=== PATIENT | male | born 1990 | race Caucasian/White ===

== ENCOUNTER 2017-12-22 13:39 | Emergency (ER) | payer OTHER ==
[~2017-12-22] VITALS: Ht 165.1 cm; Wt 65.0 kg
[2017-12-22 13:56] VITALS: BP 151/96; TEMP 37; Ht 165.1 cm; Wt 65.0 kg
--- NOTE | 2017-12-22 14:30 | DIAGNOSTIC IMAGING REPORT ---
R ELBOW MIN 3 VIEWS ROUTINE CLINICAL HISTORY: R elbow injury RIGHT ELBOW PAIN COMPARISON: None. DISCUSSION: No fractures or dislocations are visualized. The fat pads are not significantly displaced. IMPRESSION: No fractures or dislocations identified. Electronically signed by: Janak Ordaz M.D. 12/22/2017 2:29 PM Dictated Date/Time: 12/22/2017 2:28 PM
[2017-12-22] MEDS ORDERED: OXYC1TAB3 PO (14:39)
[2017-12-22 15:08] VITALS: PULSE 98; O2SAT 99
--- NOTE | 2017-12-22 16:27 | EMERGENCY ROOM VISIT NOTE ---
History First contact with patient: 14:01 Chief Complaint: ARM PAIN Stated Complaint: ARM IN CONCRETE History of Present Illness The patient is a 27 year old male who presents to the Emergency Room with complaints of right elbow pain and inability to move his elbow after sustaining a work-related injury. The patient reports that he reached in to a concrete truck spout and got his arm pinched. He reports an abrasion to the inner aspect of the elbow. He rates his discomfort a 7 out of 10. He denies any paresthesias or numbness of the right upper extremity. He denies any other injuries from this incident, including neck pain, back pain, chest pain, shortness of breath or other concerning symptoms. The patient is right-hand dominant. Review of Systems 10 system review was performed and was negative except for pertinent positives and negatives as indicated in history of present illness Past Medical/Surgical History Medical Problems: (1) No significant past medical history Surgical Problems: (1) No history of previous surgery Family History Unremarkable Social History Smoking Status: Current Every Day Smoker Alcohol Use: none Drug Use: none Marital Status: single Occupation Status: employed Current/Historical Medications Scheduled PRN Oxycodone Ir (Roxicodone Ir), 1-2 TAB PO Q4H PRN for Pain Physical Exam Vital Signs Date Time Temp Pulse Resp B/P (MAP) Pulse Ox O2 Delivery O2 Flow Rate FiO2 12/22/17 15:08 98 16 99 12/22/17 13:56 37.0 101 16 151/96 99 Room Air Physical Exam CONSTITUTIONAL: Healthy and well nourished. Alert and oriented X 3 with positive affect. Patient does not appear in any acute distress. HEENT: Normocephalic, atraumatic. Pupils equal, round and reactive. NECK: Full active range of motion without discomfort. RESPIRATORY: Clear to auscultation bilaterally with no wheezing, crackles, rhonchi or stridor. CARDIOVASCULAR: Regular rate and rhythm with no murmurs, rubs or gallops. GASTROINTESTINAL: Bowel sounds present in all quadrants. Soft and nontender to palpation. MUSCULOSKELETAL: Examination shows mild edema around the right elbow region. He has a linear abrasion over the medial aspect of the elbow. Range of motion significantly worsens the patient's discomfort. Pronation and supination also causes discomfort at the elbow. The patient has no tenderness to palpation through the bicipital groove, acromioclavicular joint or olecranon process. Distal pulses are intact. INTEGUMENTARY: No rash or other significant dermatologic conditions noted. NEUROLOGIC: Right hand and fingers are sensory intact. Medical Decision & Procedures ER Provider Diagnostic Interpretation: My interpretation of right elbow x-rays does not show any obvious fractures or dislocation. Radiologist report is as follows: R ELBOW MIN 3 VIEWS ROUTINE CLINICAL HISTORY: R elbow injury RIGHT ELBOW PAIN COMPARISON: None. DISCUSSION: No fractures or dislocations are visualized. The fat pads are not significantly displaced. IMPRESSION: No fractures or dislocations identified. ED Course Patient history and physical exam were performed. Nurse's notes were reviewed. Vital signs were reviewed and were normal. The patient refused any analgesics while in the emergency department. X-rays of the right elbow were normal. Because the patient does have discomfort with range of motion, I did elect to apply an Ortho-Glass posterior splint and sling until he can be reevaluated by his Worker's Compensation approved orthopedic surgeon. Neurovascular check after splint placement was normal. The patient was encouraged to intermittently apply ice to the elbow. Ibuprofen and Tylenol as needed for baseline pain relief. The patient will be provided a prescription for OxyIR 5 mg, dispense #50 with no refills, as needed for breakthrough pain. The patient was happy with plan of care, voiced understanding of all discharge instructions, and rated his pain a 4 out of 10 at the time of discharge. Medical Decision [place] Drug Monitoring Program Search Results: patient reviewed within database, no issues identified Medication Reconcilliation Current Medication List: was personally reviewed by me Blood Pressure Screening Patient's blood pressure: Normal blood pressure Impression Primary Impression: Injury of right elbow Additional Impression: Work related injury Departure Information Dispostion Home / Self-Care Prescriptions Oxycodone Ir (Roxicodone Ir) 5 Mg Tab 1-2 TAB PO Q4H Y for Pain, #15 TAB For Initial Treatment Prov: Galen Ramirez PA 12/22/17 Referrals No Doctor, Assigned (PCP) Forms HOME CARE DOCUMENTATION FORM, IMPORTANT VISIT INFORMATION Patient Instructions My [employer] Additional Instructions Ice and elevate arm for swelling and pain. Ibuprofen 800 mg and/or Tylenol 1000 mg every 8 hours. You may also alternate these medications for more effective pain relief: Ibuprofen --4 HRS--> Tylenol --4 HRS--> ibuprofen --4 HRS--> Tylenol .... OxyIR if needed for additional pain relief. Do not drink or drive while taking OxyIR. Keep splint dry. Follow-up with your Worker's Compensation approved orthopedic surgeon for further evaluation and treatment - call for appointment. Problem Qualifiers Primary Impression: Injury of right elbow Encounter type: initial encounter Qualified Codes: S59.901A - Unspecified injury of right elbow, initial encounter
== END 2017-12-22 15:13 | disposition home or self-care (01) ==
LOC: C.EDB 13:42 → C.EDD 15:13
DX: S59.901A Unspecified injury of right elbow, initial encounter (principal); W23.0XXA Caught, crushed, jammed, or pinched between moving objects, initial encounter; Y99.0 Civilian activity done for income or pay; F17.200 Nicotine dependence, unspecified, uncomplicated